=== PATIENT | male | born 1940 | race Caucasian/White ===

== ENCOUNTER 2018-11-27 09:53 | Inpatient (IN) | payer MEDICARE, OTHER ==
[~2018-11-27] VITALS: Ht 177.8 cm; Wt 81.6 kg
[~2018-11-27 09:53] MED LIST: ALTACE10 MG PO; ATENOLOL; AUGMENTIN 875-1 EACH PO; CIPROFLOXACIN500 M1 PO; FISH OIL 1,001000 M2 PO; GLUMETZA1000 PO; IBUPROFEN 800800 MG PO; K-DUR 20 MEQ T20 MEQ PO; NORCO 5-325 TA1 EACH PO; ZOCOR20 MG PO; ZOFRAN4 MG PO; [UNRECOGNIZED DRUG - OTHER]
[2018-11-27 09:55] VITALS: BP 137/68
[2018-11-27] MEDS ORDERED: METFORMIN HCL500 MG PO (10:06)
[2018-11-27 10:11] LABS: HEMATOCRIT 38.1 % (42.0-52.0); HEMOGLOBIN 12.9 gm/dL (14.0-18.0); MCH 29.4 pg (26.0-34.0); MCHC 33.8 g/dL (28.0-37.0); MCV 86.8 fL (80.0-100.0); MPV 7.7 fl. (7.2-11.1); NUCLEATED RBCS 0 /100WBC; PLATELET COUNT* 194 thou/uL (150-400); RBC 4.39 mil/uL (4.50-6.00); RDW-CV 14.8 % (10.5-14.5)
[2018-11-27 10:21] LABS: ANION GAP 9 mmol/L (7-16); BUN 13 mg/dL (7-18); CALCIUM 8.9 mg/dL (8.5-10.1); CHLORIDE 104 mmol/L (98-107); CO2 25 mmol/L (21-32); CREATININE 1.1 mg/dL (0.6-1.3); GLUCOSE 120 mg/dL (70-99); POTASSIUM 3.5 mmol/L (3.5-5.1); SODIUM 138 mmol/L (136-145)
[2018-11-27 10:28] LABS: PROTIME 10.6 Seconds (9.20-11.50)
[2018-11-27 10:33] LABS: ALBUMIN 3.6 g/dL (3.4-5.0); ALKALINE PHOSPHATASE 57 U/L (46-116); CK-MB MASS 1.6 ng/mL (<0.5-3.6); LIPASE 85 U/L (73-393); MAGNESIUM 1.5 mg/dL (1.8-2.4); NT-PRO BRAIN NAT PEPTIDE 44 pg/mL (<300); SGOT 17 U/L (15-37); SGPT 31 U/L (30-65); TOTAL BILIRUBIN 0.6 mg/dL (<0.1-1.0); TOTAL PROTEIN 6.7 g/dL (6.4-8.2); TROPONIN-I LEVEL <0.06 ng/mL (<0.06)
[2018-11-27 10:41] LABS: ABSOLUTE LYMPHOCYTES 1.2 thou/uL (0.8-5.3); ABSOLUTE NEUTROPHILS 14.8 thou/uL (1.6-8.1); PLATELET ESTIMATE ADEQUATE
[2018-11-27 10:42] LABS: ANISOCYTOSIS 1+; OVALOCYTES 1+; POIKILOCYTOSIS 1+
[2018-11-27 12:32] VITALS: BP 105/56
[2018-11-27 12:45] VITALS: BP 139/69
[2018-11-27 15:21] LABS: CHOLESTEROL 168 mg/dL (<200); HDL CHOLESTEROL 48 mg/dL (>40); LDL CHOLESTEROL 75 mg/dL (<100); SERUM ASSESSMENT Clear; TC:HDL 3.5 Ratio (Not establshd); TRIGLYCERIDE 229 mg/dL (<150); VLDL 46 mg/dL (<40)
--- NOTE | 2018-11-27 15:25 | EKG ---
[place] [address] ELECTROCARDIOGRAM REPORT Name: ANUP RENDON Room: [address] ADM IN .R.#: [id number] Admission: 11/27/18 Attend Phys: Luigi Doyle Discharge: Date of : 44 Report #: [id number] THIS REPORT FOR: //name// [facility] ED Test Date: 2018-11-27 Test Time: 09:57:55 Pat Name: ANUP RENDON Department: Room: [facility] Gender: M Supervisor Felling Bucking: [facility] : 1940 Requested By: Gino Velez Order Number: [id number] MD: Adelfo Carvajal Measurements Intervals [place] Rate: 85 P: 51 RI: 178 QRS: -3 QRSD: 104 T: 43 QT: 377 QTc: 449 Interpretive Statements Sinus rhythm Abnormal inferior Q waves Compared to ECG 06/19/2010 10:30:21 Sinus bradycardia no longer present Electronically Signed On 11-27-2018 15:25:26 CDT by Adelfo Carvajal [email or web address] <ELECTRONICALLY SIGNED> By: Adelfo Carvajal MD, MERGED WITH [facility] 11/27/18 1525 [id number] Adelfo Carvajal MD, MERGED WITH [facility] /EPI
[2018-11-27 15:28] LABS: URINE BILIRUBIN NEGATIVE (Negative); URINE BLOOD 3+ (Negative); URINE CLARITY CLEAR; URINE COLOR YELLOW; URINE GLUCOSE-RANDOM NEGATIVE (Negative); URINE KETONES NEGATIVE (Negative); URINE LEUKOCYTES-REFLEX 1+ (Negative); URINE PROTEIN NEGATIVE (Negative); URINE SPECIFIC GRAVITY <= 1.005 (1.005-1.030); URINE UROBILINOGEN 0.2 E.U./dl (0.2-1.0)
[2018-11-27 15:29] LABS: URINE NITRITE-REFLEX POSITIVE (Negative)
[2018-11-27 15:39] LABS: MUCUS None Seen strn/LPF (None Seen); SQUAMOUS NONE SEEN /LPF (0-3); URINE WBC-REFLEX >25 Many /HPF (0-5)
[2018-11-27 15:40] LABS: BACTERIA-REFLEX 1-9 Few /HPF (None Seen); CASTS None Seen /LPF (None Seen); CRYSTALS None Seen /LPF (None Seen); URINE RBC 3-10 Few /HPF (0-2); WBC CLUMPS Few (None Seen)
[2018-11-27] MEDS ORDERED: FISH OIL 1,0001 EAC1 PO (16:02)
[2018-11-27] MEDS ORDERED: PROSCAR 5MG TABL5 MG PO (16:03)
[2018-11-27] MEDS ORDERED: HYDROCHLOROTH12.5 M1 PO (16:05)
[2018-11-27] MEDS ORDERED: OXYBUTYNIN ER 55 M1 PO (16:06)
[2018-11-27] MEDS ORDERED: OMEPRAZOLE10 MG PO (16:07)
[2018-11-27] MEDS ORDERED: SERTRALINE HCL50 MG PO (16:07)
[2018-11-27] MEDS ORDERED: CENTRUM ADULTS1 EACH PO (16:08)
[2018-11-27] MEDS ORDERED: ZETIA10 MG PO (16:10)
[2018-11-27] MEDS ORDERED: ALFUZOSIN HCL10 MG PO (16:10)
[2018-11-27 16:14] LABS: CALCIUM 8.1 mg/dL (8.5-10.1); MAGNESIUM 1.7 mg/dL (1.8-2.4); POTASSIUM 3.8 mmol/L (3.5-5.1)
[2018-11-27 16:23] LABS: TROPONIN-I LEVEL <0.06 ng/mL (<0.06)
[2018-11-27 16:57] VITALS: BP 122/60
--- NOTE | 2018-11-27 17:11 | NUR ---
PATIENT PROGRESSING WELL TOWARDS GOALS. NO CHEST PAIN SINCE ADMISSION. UP AD MAURO, FLUIDS INFUSING AND ANTIBIOTIC ADMINISTERED. ALL QUESTIONS ANSWERED. SOME MEDICATIONS REORDERED BUT OTHERS NOT DUE TO NOT HAVING PATIENTS FULL MED LIST UNTIL LATER THIS EVENING. PATIENT TO BE NPO AT MIDNIGHT FOR STRESS TEST IN THE AM. PATIENT AWARE, ALL QUESTIONS ANSWERED. BED IN LOWEST POSITION, CARDIDAC MONITOR IN PLACE. WILL CONTINUE TO MONITOR.
[2018-11-27 19:41] VITALS: BP 103/48
[2018-11-28] VITALS: BP 95/41
[2018-11-28 04:00] VITALS: BP 109/53
--- NOTE | 2018-11-28 04:59 | NUR ---
PATIENT PROGRESSING TOWARDS GOALS: PATIENT DENIES CHEST PAIN AND DISCOMFORT OVERNIGHT. NPO FOR STRESS TEST TODAY. PATIENT VERBALIZES UNDERSTANDING. CALL LIGHT WITHIN REACH.
[2018-11-28 05:23] LABS: HEMATOCRIT 33.6 % (42.0-52.0); HEMOGLOBIN 11.5 gm/dL (14.0-18.0); MCH 29.7 pg (26.0-34.0); MCHC 34.2 g/dL (28.0-37.0); MCV 86.9 fL (80.0-100.0); MPV 7.8 fl. (7.2-11.1); RBC 3.87 mil/uL (4.50-6.00); RDW-CV 14.8 % (10.5-14.5); WBC 12.8 thou/uL (4.0-11.0)
[2018-11-28 05:39] LABS: ANION GAP 6 mmol/L (7-16); BUN 12 mg/dL (7-18); CALCIUM 8.2 mg/dL (8.5-10.1); CHLORIDE 108 mmol/L (98-107); CO2 28 mmol/L (21-32); GLUCOSE 108 mg/dL (70-99); POTASSIUM 3.9 mmol/L (3.5-5.1); SODIUM 142 mmol/L (136-145); TROPONIN-I LEVEL <0.06 ng/mL (<0.06)
[2018-11-28 08:54] VITALS: BP 125/64
[2018-11-28 12:09] VITALS: BP 135/65
--- NOTE | 2018-11-28 12:39 | NUR ---
VSS. NO CHEST PAIN. PT TO HAVE STRESS TEST TODAY. PER CARDIOLOGY AND NUCLEAR MEDICINE PT CAN HAVE LITE BREAKFAST TEST SCHEDULE AROUND NOON. PT REPORTED ONLY WANTING WATER. MEDICATIONS ADMINISTERED PER EMAR. WILL CONTINUE PLAN OF CARE.
--- NOTE | 2018-11-28 16:08 | CARDNUC ---
[place] [address] CARDIAC NUCLEAR IMAGING REPORT Name: ANUP RENDON Room: [address] IN [facility]#: [id number] Admission: 11/27/18 Attend Phys: Koko Arredondo Discharge: Date of : 44 Date of Service: 11/28/18 1608 Report #: [id number] THIS REPORT FOR: //name// APPROVED REPORT Study performed: 11/27/2018 16:07:00 Indication: Chest pain Patient Location: In-Patient Room #: [facility]ly [facility] Stress Tech: Blessing Valdez Stress Nurse: Corrie Elder RN Ht: 5 ft 10 in Wt: 180 lbs BSA: 2.00 m2 BMI: 25.82 Medical History Medical History: Angina, Diabetes, Former Smoker, HTN, Hyperlipidemia, Weakness, Dehydration, UTI. Medications: Atorvastatin, Fish Oil, Lisinopril, Mag-Ox, Glucophage, Home meds include - Zetia, HCTZ, Altace, Zocor. Allergies: No known drug allergies Cardiac Risk Factors: Age, DM, FHX of CAD, HTN, Hyperlipidemia, Past Smoker. Previous Cardiac Procedures: None Pretest Chest Pain Characteristics: No chest pain Exercise History: Indeterminate Physical Disabilities: Painful knees. Meds Held (24 hrs): None Resting Data Rest SPECT myocardial perfusion imaging was performed in supine position 60 minutes following the intravenous injection of 11.3 mCi of Tc-99m Sestamibi. Time of rest injection: 12:00 The images were gated to evaluate regional wall motion and calculate left ventricular ejection fraction. Administration Route: IV Administration Site: Left AC Pharmacologic Stress Pharmacologic stress test was performed by injecting Regadenoson 0.4 mg IV push over 10-15 seconds immediately followed by the intravenous injection of 33.0 mCi of Tc-99m Sestamibi. Time of stress injection: 14:05 [place] [address] CARDIAC NUCLEAR IMAGING REPORT Name: ANUP RENDON Room: [address]#: [id number] Admission: 11/27/18 Attend Phys: Koko Arredondo Discharge: Date of : 44 Date of Service: 11/28/18 1608 Report #: [id number] Administration Route: IV Administration Site: Left AC Heart Rate at time of stress injection: 114 bpm. Gated Stress SPECT was performed 40 minutes after stress injection. The images were gated to evaluate regional wall motion and calculate left ventricular ejection fraction. Prone imaging was performed. Stress Test Details Stress Test: Pharmacologic stress was paired with low level exercise. Reason for pharmacologic stress test: Bad knees.. HR Max Heart Rate (APMHR): 144 bpm Resting HR: 62 bpm Target HR (85% APMHR): 122 bpm Max HR Achieved: 114 bpm % of APMHR: 79 Recovery HR: 83 bpm HR response to stress: Normal HR response to stress BP Resting BP: 135/58 mmHg Max BP: 181/71 mmHg Recovery BP: 161/74 mmHg BP response to stress: Normal blood pressure response to stress. ECG Resting ECG: Sinus Rhythm, normal EKG Stress ECG: Sinus Rhythm, normal EKG ST Change: None Maximum ST Deviation: 0 mm Arrhythmia: None Recovery ECG: Sinus Rhythm, normal EKG Recovery ST Change: None Recovery ST Deviation: 0 mm Recovery Arrhythmia: None Clinical Reason for Termination: Completed protocol Stress Symptoms: None Exercise duration: 4 min 00 sec Exercise capacity: 2.30 METs Nurse Comments 78 year old male inpatient presented [place] [address] CARDIAC NUCLEAR IMAGING REPORT Name: ANUP RENDON Room: [address]#: [id number] Admission: 11/27/18 Attend Phys: Koko Arredondo Discharge: Date of : 44 Date of Service: 11/28/18 1608 Report #: [id number] with dehydration and UTI. Patient tolerated walking Lexiscan well. Recovery unremarkable with PO caffeine, effective. Patient was escorted via wheelchair by staff to Nuclear Medicine for images. Patient was stable with no complaints at this time. Stress ECG Conclusion Normal hemodynamic response to pharmacologic stress. Non-diagnostic exercise stress due to failure to attain target HR. Study Quality Study: Good Artifact: Mild Diaphragmatic artifact Lung Uptake: Normal Study Data At rest, the left ventricular ejection fraction was 75%.. Post stress, the left ventricular ejection was 74%.. TID = 1.06. Perfusion The resting study demonstrated a small very mild inferior defect. There was also very small very mild apical defect compatible with apical notching. The poststress images were unchanged from those seen at rest. Prone images were obtained and demonstrated only a small very mild anterior defect. The fixed inferior defect was felt to be due to diaphragmatic attenuation. There were no reversible defects seen, there was no evidence of myocardial ischemia. Images were reviewed using [employer]. Wall Motion Normal left ventricular wall motion. Nuclear Conclusion ECG Findings: non-diagnostic Clinical Findings: negative for ischemia Nuclear Findings: negative for ischemia Exercise Capacity: not assessed Left Ventricular Function: normal Risk Study: low The Lexiscan cartilage stress test demonstrates low probability for myocardial ischemia. Overall this is a low risk study. Normal study. No scintigraphic evidence for myocardial ischemia or scar. <Conclusion> [place] [address] CARDIAC NUCLEAR IMAGING REPORT Name: ANUP RENDON Room: [address] IN M.R.#: [id number] Admission: 11/27/18 Attend Phys: Koko Arredondo Discharge: Date of : 44 Date of Service: 11/28/18 1608 Report #: [id number] Normal hemodynamic response to pharmacologic stress. Non-diagnostic exercise stress due to failure to attain target HR. <ELECTRONICALLY SIGNED> By: Roya Kline MD, FACC 11/28/18 1608 07 07 Roya Kline MD, FACC /INF
--- NOTE | 2018-11-28 16:54 | NUR ---
SW met with pt to complete initial assessment, introduce self, and SW role. Pt alert, oriented. Pt lives at home with . Pt is independent in mobility and ADLs and has not needed any DME or HH services. 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 Pt has good family support system. Pt did not express any dc needs at this time.
[2018-11-28 17:14] VITALS: BP 147/54
--- NOTE | 2018-11-28 19:25 | NUR ---
PT A/O X'S 4. VSS. AFEBRILE. NO CHEST PAIN THIS SHIFT. PT TO STAY OVERNIGHT TO TREAT UTI.
[2018-11-28 20:00] VITALS: BP 122/59
--- NOTE | 2018-11-29 02:56 | NUR ---
PT ALERT ORIENTED. UP AD MAURO IN ROOM. TELEMETRY SHOWS SB/SR. DENIES PAIN.
[2018-11-29 04:00] VITALS: BP 133/73
[2018-11-29 08:00] VITALS: BP 140/62
[2018-11-29 11:00] VITALS: BP 141/63
[2018-11-29 13:54] VITALS: BP 141/63
[2018-11-29] MEDS ORDERED: CEFUROXIME500 MG PO (14:27)
--- NOTE | 2018-11-29 16:22 | NUR ---
order received to discharge idvya home to self care. med rec, medication education, stroke education, and need for follow up appointment with primary care covered and stated as understood by patient. iv and telemetry p[ack removed. hourly rounding completed for patient safety. divya chose to ambulate to his car with nad nursing staff present. discharge to time of 15:05.
== END 2018-11-29 15:06 | disposition home or self-care (01) | DRG 206 ==
LOC: M.ERS 09:53 → M.2W 11:21 → M.TBA-ER 11:21 → M.2W 12:21
PROVIDERS: Family Medicine; ADMIT Internal Medicine
DX: M94.0 Chondrocostal junction syndrome [Tietze] (principal); N39.0 Urinary tract infection, site not specified; E11.9 Type 2 diabetes mellitus without complications; I10 Essential (primary) hypertension; E78.00 Pure hypercholesterolemia, unspecified; T67.5XXA Heat exhaustion, unspecified, initial encounter; X58.XXXA Exposure to other specified factors, initial encounter; E86.0 Dehydration; E78.5 Hyperlipidemia, unspecified; D72.829 Elevated white blood cell count, unspecified; B96.89 Other specified bacterial agents as the cause of diseases classified elsewhere; E86.9 Volume depletion, unspecified; Z87.891 Personal history of nicotine dependence; Z79.899 Other long term (current) drug therapy